=== PATIENT | male | born 1975 | race Caucasian/White ===

== ENCOUNTER 2017-07-14 14:13 | Emergency (ER) | payer SELFPAY ==
[2017-07-14 14:27] VITALS: RESP 16; TEMP 98.5
--- NOTE | 2017-07-14 15:37 | EDPHY ---
H & P Stated Complaint: Left hand lacerations. Cut with chop saw. Time Seen by Provider: 07/14/17 15:13 HPI/ROS: CHIEF COMPLAINT: left hand laceration HISTORY OF PRESENT ILLNESS: 41-year-old male presents emergency department a laceration to the dorsal aspect of his left hand from a chop saw. Extensor tendon finger visibly lacerated on middle finger. Tetanus up to date. Pt is right hand dominant. Pt denies numbness or tingling to this hand. No other complaints. Source: Patient Exam Limitations: No limitations - Personal History Current Tetanus Diphtheria and Acellular Pertussis (TDAP): Yes - Medical/Surgical History Hx Asthma: No Hx Chronic Respiratory Disease: No Hx Diabetes: No Hx Cardiac Disease: No Hx Renal Disease: No Hx Cirrhosis: No Hx Alcoholism: No Hx HIV/AIDS: No Hx Splenectomy or Spleen Trauma: No Other PMH: Denies - Physical Exam Exam: GEN: Awake, alert, oriented, no acute distress RESP: nl resp effort MSK: Left middle finger with full active flexion and extension against resistance PIP, DIP and MCP. 2 point discrimination intact SKIN: 2.5 cm laceration to dorsal aspect of left hand over MCP joint middle finger with extensor tendon laceration greater than 50% Constitutional: Initial Vital Signs Temperature (C) 36.9 C 07/14/17 14:20 Heart Rate 68 07/14/17 14:20 Respiratory Rate 16 07/14/17 14:20 Blood Pressure 121/93 H 07/14/17 14:20 O2 Sat (%) 96 07/14/17 14:20 Allergies/Adverse Reactions: No Known Allergies Allergy (Unverified 07/14/17 14:27) Home Medications: Medication Instructions Recorded Cephalexin [Keflex] 500 mg PO TID 5 Days cap 07/14/17 Hydrocodone/APAP 5/325 [Walnut 1 tab PO Q4H PRN #10 tab 07/14/17 5/325] Medical Decision Making - Diagnostics Imaging Results: Imaging Impressions Hand X-Ray 07/14/17 15:31 Impression: 1. No underlying fracture seen left hand with soft tissue irregularity over the dorsal aspect base of the left third and fourth proximal phalanx. Imaging: I viewed and interpreted images myself Procedures: Procedure: Laceration repair. Verbal consent was obtained from the patient. The 3 cm laceration on the left hand was anesthetized using mix of 1% lidocaine without epinephrine with 0.5% bupivacaine without epinephrine. The wound was carefully irrigated by the emergency department fingerprint technician. Next, the wound was prepped and draped in sterile fashion and explored to its base with a gloved finger. Middle finger extensor tendon lacerated. No vascular injury was identified. No foreign bodies were identified. The wound was repaired with 5.0 Prolene, 6 simple interrupted sutures. The wound repair was simple. The procedure was performed by myself. Tetanus and antibiotic status were addressed. ED Course/Re-evaluation: IV established, pt is given 1 gram of IV ancef for partial extensor tendon laceration. Xray obtained showing no fracture per radiologist. Dr. Whittaker paged. 415pm- Dr. Whittaker aware of patient. Wound will be irrigated, sutured. Pt will be placed in a splint in extension, discharged with cephalexin and Dr. Whittaker would like to see patient in the clinic Monday or Monday. - Data Points Medications Given: Discontinued Medications Cefazolin Sodium/Dextrose (Ancef 1 Gm (Premix)) 50 mls @ 200 mls/hr IV EDNOW ONE PRN Reason: Protocol Stop: 07/14/17 15:45 Last Admin: 07/14/17 15:51 Dose: 50 mls Departure - Departure Disposition: Home, Routine, Self-Care Clinical Impression: Extensor tendon laceration of left hand with open wound Qualifiers: Encounter type: initial encounter Qualified Code(s): S66.822A - Laceration of other specified muscles, fascia and tendons at wrist and hand level, left hand, initial encounter Condition: Good Instructions: Tendon Laceration (ED) Additional Instructions: Keep dressing and splint in place until you follow up with the hand doctor. Call first thing Monday to schedule this appointment. He wants to see you in the office on Monday or Monday. Your tendon will need to be repaired. Take 500mg of keflex three times per day for 5 days. Rest, elevate. Take 600mg of ibuprofen every 8 hours with food for pain. Take 1 hydrocodone every 4-6 hours as needed for severe pain. Referrals: Dioni Whittaker MD [Medical Doctor] - As per Instructions (hand surgeon honing machine operator production) Prescriptions: Cephalexin [Keflex] 500 mg PO TID 5 Days cap Hydrocodone/APAP 5/325 [[place] ] 1 tab PO Q4H PRN #10 tab PRN Reason: Pain, Moderate
[2017-07-14 17:39] VITALS: BP 125/86; PULSE 70; O2SAT 97
== END 2017-07-14 17:39 | disposition home or self-care (01) ==
PROC: 0HQGXZZ Repair Left Hand Skin, External Approach (ICD-10-PCS; principal; 2017-07-14)
DX: S66.822A Laceration of other specified muscles, fascia and tendons at wrist and hand level, left hand, initial encounter (principal); W27.0XXA Contact with workbench tool, initial encounter
CPT/HCPCS: 96365; J0690; L3925